=== PATIENT | male | born 1990 | race Caucasian/White ===

== ENCOUNTER → 2019-04-15 | Outpatient (CLI) | payer OTHER ==
--- NOTE | 2019-04-16 05:32 | REP ---
Clinical: Cough and shortness of breath . Comparison: None . Technique: PA and lateral. Findings: The mediastinum and cardiac silhouette are normal. The lung mai are clear and without acute consolidation, effusion, or pneumothorax. The skeletal structures are intact and normal. Impression: 1. No acute cardiopulmonary process. Electronically Signed by Noé Ch MD 04/16/2019 05:23 A
== END ==
LOC: M WUC 17:15
PROVIDERS: ATTEND Physician Assistant
DX: R05 Cough (principal); R06.02 Shortness of breath